=== PATIENT | female | born 1985 | race African-American/Black ===

== ENCOUNTER 2017-11-14 23:45 | Emergency (ER) | payer MEDICAID ==
[2017-11-15 00:17] LABS: HCG URINE NEGATIVE (NEGATIVE)
[2017-11-15 00:22] LABS: APPEARANCE CLOUDY (CLEAR); BILIRUBIN NEGATIVE (NEGATIVE); COLOR YELLOW (YELLOW); GLUCOSE NEGATIVE (NEGATIVE); KETONE NEGATIVE (NEGATIVE); NITRITE POSITIVE (NEGATIVE); PROTEIN 1+ mg/dL (NEGATIVE)
[2017-11-15 00:24] LABS: BACTERIA MANY /hpf (NONE SEEN); EPITHELIAL CELLS 0-5 /hpf (0-5); MUCUS <1+ /lpf (NONE SEEN); RED CELLS - URINE 0-5 /hpf (0-5)
[2017-11-17 03:09] LABS: CHLAMYDIA TRACHOMATIS, NAA Negative (Negative)
== END 2017-11-15 00:47 | disposition home or self-care (01) ==
LOC: D.ER 23:45
PROVIDERS: Family Medicine; Nurse Practitioner Family
DX: Z20.2 Contact with and (suspected) exposure to infections with a predominantly sexual mode of transmission (principal); N39.0 Urinary tract infection, site not specified; F17.200 Nicotine dependence, unspecified, uncomplicated